=== PATIENT | male | born 1955 ===

== ENCOUNTER → 2018-09-13 | Outpatient (CLI) | payer BC ==
[~2018-09-13] MED LIST: ASP325 PO; ASPI-1471 PO; AUG500 PO; METO25TA93 PO
[2018-09-13 12:20] LABS: PLATELET COUNT, AUTOMATED 368 K/uL (150-450)
== END ==
LOC: LAB 11:48
PROVIDERS: ATTEND Internal Medicine
DX: I48.91 Unspecified atrial fibrillation (principal); E05.90 Thyrotoxicosis, unspecified without thyrotoxic crisis or storm
CPT/HCPCS: 36415; 82040; 82247; 82310; 82374; 82435; 82565; 82728; 82947; 83540; 83550; 84075; 84132; 84146; 84153; 84155; 84295; 84439; 84443; 84445; 84450; 84460; 84481; 84520; 85025; 86376; 86800

== ENCOUNTER 2018-10-11 03:40 | Outpatient (RCR) | payer BC ==
--- NOTE | 2018-10-12 11:29 | RADIOLOGY IMAGING REPORT ---
[facility] PATIENT NAME: Vladimir Rivera : 1955 MR: [id number] V: [id number] EXAM DATE: ORDERING PHYSICIAN: DEVORA CLEANING TECHNOLOGIST: Location: [facility] - [place] Patient: Vladimir Rivera : 1955 Visit/Account:[id number] Date of Sevice: 10/11/2018 THYROID IMAGE/UPTAKE MULTIPLE HISTORY: hyperthyroid TECHNIQUE: 371 microcuries I-123 were administered orally. Radioiodine uptake values were calculated at 24 hours following tracer administration. Gamma camera images were obtained of the neck in variou s orientations. COMPARISON: None FINDINGS: Thyroid radioiodine uptake at 24 hours is 73% (normal range 15-40 %). Thyroid radioiodine uptake at six hours is 53.3% (normal range 5-15 %) Size and shape: Normal. Homogeneity: The left lobe appears to demonstrate mild diffuse increased uptake relative to the right Nodules: None evident. IMPRESSION: Abnormally high 24 hour thyroid uptake of 73% Abnormally high six hour thyroid uptake of 53.3% The left lobe appears to demonstrate mild diffuse increased isotope uptake relative to the right. Th is could be related to difference in size however if of concern thyroid ultrasound may be helpful to evaluate thyroid morphology Report Dictated By: Myesha Selby MD at 10/12/2018 11:21 AM Report E-Signed By: Myesha Selby MD at 10/12/2018 11:24 AM WSN:[email or web address]
[2018-10-14] MEDS ORDERED: METH-284 PO (16:29)
== END 2018-10-11 18:00 | disposition home or self-care (01) ==
LOC: NUC 03:40 → EDSTATUS 14:05 → NUC 18:00
PROVIDERS: ATTEND Internal Medicine
DX: E05.90 Thyrotoxicosis, unspecified without thyrotoxic crisis or storm (principal); I48.91 Unspecified atrial fibrillation; R94.6 Abnormal results of thyroid function studies
CPT/HCPCS: 78014; A9516

== ENCOUNTER → 2018-10-14 | Outpatient (CLI) | payer BC ==
[~2018-10-14] MED LIST changes: +METH-284 PO
--- NOTE | 2018-10-14 15:52 | RADIOLOGY IMAGING REPORT ---
FACILITY: [facility] - [place] PATIENT NAME: Vladimir Rivera : 1955 MR: [id number] V: [id number] EXAM DATE: ORDERING PHYSICIAN: DEVORA CLEANING TECHNOLOGIST: Location: [facility] [place] Patient: Vladimir Rivera : 1955 Visit/Account:[id number] Date of Sevice: 10/14/2018 THYROID EXAMINATION: Thyroid ultrasound Additional Pertinent history: none COMPARISON STUDIES: Nuclear medicine thyroid study 10/11/2018 FINDINGS: Thyroid size: Right lobe 4.7 x 1.1 x 1.8 cm. Left lobe 4.1 x 1.8 x 1.9 cm Isthmus 0.6 cm Thyroid nodules: Right lobe - 0.7 cm nodule hypoechoic well-circumscribed is seen. Left lobe - 0.6 cm nodule is seen in the lower pole. This is predominantly cystic and well-cir cumscribed. Isthmus - none Thyroid vascularity: Symmetrically increased. IMPRESSION: Bilateral increased vascular flow to the right and left thyroid lobe. Patient had a recent thyroid i odine 123 uptake study, which was abnormal elevated. This is most consistent with Graves' disease. Report Dictated By: Murphy Amado at 10/14/2018 3:31 PM Report E-Signed By: Murphy Amado at 10/14/2018 3:47 PM WSN:[email or web address]
== END ==
LOC: US 00:45
PROVIDERS: ATTEND Internal Medicine
DX: E05.90 Thyrotoxicosis, unspecified without thyrotoxic crisis or storm (principal); I48.91 Unspecified atrial fibrillation
CPT/HCPCS: 36415; 76536; 84402; 84403; 84439; 84443; 84481

== ENCOUNTER → 2019-01-04 | Outpatient (CLI) | payer BC ==
[~2019-01-04] MED LIST changes: +AMOX-559 PO
[2019-01-04 13:54] LABS: PLATELET COUNT, AUTOMATED 261 K/uL (150-450)
== END ==
LOC: LAB 13:21
PROVIDERS: ATTEND Internal Medicine
DX: E05.90 Thyrotoxicosis, unspecified without thyrotoxic crisis or storm (principal); E05.00 Thyrotoxicosis with diffuse goiter without thyrotoxic crisis or storm; I48.91 Unspecified atrial fibrillation
CPT/HCPCS: 36415; 82040; 82247; 82310; 82374; 82435; 82565; 82947; 84075; 84132; 84155; 84295; 84443; 84450; 84460; 84520; 85025

== ENCOUNTER → 2019-01-25 | Outpatient (CLI) | payer BC ==
--- NOTE | 2019-01-25 15:47 | RADIOLOGY IMAGING REPORT ---
FACILITY: [facility] PATIENT NAME: Vladimir Rivera : 1955 MR: [id number] V: [id number] EXAM DATE: ORDERING PHYSICIAN: VERONICA JEROME TECHNOLOGIST: Location: [facility] Patient: Vladimir Rivera : 1955 Visit/Account:[id number] Date of Sevice: 01/25/2019 EXAMINATION: CT orbits without IV contrast HISTORY: Graves' disease. COMPARISON: Thyroid ultrasound and I-123 scan from 10/11/2018. TECHNIQUE: Spiral scan was obtained through the orbits without intravenous contrast. Sagittal and coronal reformatted images are also submitted. One of the following dose optimization techniques was utilized in the performance of this exam: Autom ated exposure control; adjustment of the mA and/or kV according to the patient's size; or use of an i terative reconstruction technique. Specific details can be referenced in the facility's radiology C T exam operational policy. FINDINGS: There is mild enlargement of the right inferior rectus muscle, and the left inferior and medial rectu s muscles, with sparing of the musculotendinous junctions. Intraorbital fat is mildly increased bilat erally. There is mild bilateral proptosis. No focal abnormality of either globe or lacrimal gland. There is mild nasal septal deviation to the right anteriorly. Minimal mucosal thickening in the bilat eral ethmoid air cells. Visualized intracranial contents are normal. 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 Report Dictated By: Tamera Lovell MD at 01/25/2019 3:39 PM Report E-Signed By: Tamera Lovell MD at 01/25/2019 3:43 PM WSN:[email or web address]
== END ==
LOC: CT 01:47
PROVIDERS: ATTEND Technician/Technologist Ophthalmic
DX: E05.00 Thyrotoxicosis with diffuse goiter without thyrotoxic crisis or storm (principal); J34.2 Deviated nasal septum
CPT/HCPCS: 70480

== ENCOUNTER → 2019-03-31 | Outpatient (CLI) | payer BC ==
[~2019-03-31] MED LIST changes: +METH5TAB87 PO
[2019-03-31 11:24] LABS: PLATELET COUNT, AUTOMATED 278 K/uL (150-450)
== END ==
LOC: LAB 11:02
PROVIDERS: ATTEND Internal Medicine
DX: E05.90 Thyrotoxicosis, unspecified without thyrotoxic crisis or storm (principal); E05.00 Thyrotoxicosis with diffuse goiter without thyrotoxic crisis or storm; I48.91 Unspecified atrial fibrillation; E34.9 Endocrine disorder, unspecified
CPT/HCPCS: 36415; 82040; 82247; 82310; 82374; 82435; 82565; 82947; 84075; 84132; 84155; 84295; 84402; 84403; 84439; 84443; 84450; 84460; 84481; 84520; 85025